=== PATIENT | male | born 1940 | race Hispanic/Latino ===

== ENCOUNTER 2018-07-05 07:11 | Day surgery (SDC) | payer OTHER ==
[2018-07-02 11:42] LABS: EOSINOPHILS % (AUTO) 1.5 % (0.0-8.0); LYMPHOCYTES % (AUTO) 14.7 % (21.0-51.0); MEAN CORPUSCULAR HEMOGLOBIN 29.5 pg (27.0-33.0); MEAN CORPUSCULAR HGB CONC 33.5 g/dL (32.0-36.0); MEAN CORPUSCULAR VOLUME 88.3 fL (79-99); MONOCYTES % (AUTO) 7.6 % (3.0-13.0); NEUTROPHILS % (AUTO) 75.2 % (40.0-77.0); PLATELET COUNT (AUTO) 376 K/uL (130-400); RED BLOOD CELL COUNT(AUTO) 3.96 MIL/uL (4.50-6.20); RED CELL DISTRIBUTION WIDTH 14.8 % (11.0-15.5); WHITE BLOOD COUNT (AUTO) 7.6 K/uL (4.8-10.8)
[2018-07-02 11:44] VITALS: BP 136/62
[2018-07-02 11:57] LABS: CREATININE 1.3 mg/dL (0.5-1.5)
[~2018-07-05] VITALS: Ht 165.1 cm; Wt 81.1 kg
[2018-07-05] VITALS (14 sets, daily range): BP systolic 97–132; BP diastolic 47–65
[~2018-07-05 07:11] MED LIST: ASPI-449 PO; ATOR10TA69 PO; COQ10 PO; INSU100I21 SQ; LOSA1TAB54 PO; MULT-1289 PO; SITA1TAB6 PO; TAMS0.4C32 PO
[2018-07-05] MEDS ORDERED: SODIUM CHLORIDE 0.9% 1000ML 1,000 ML IV ONE (08:06)
[2018-07-05] MEDS ORDERED: DEXAMETHASONE SOD PHOSPHATE 10MG/ML 1ML VIAL ONE (08:17)
[2018-07-05] MEDS ORDERED: MIDAZOLAM HCL 1 MG/ML 2ML VIAL ONE (08:17)
[2018-07-05] MEDS ORDERED: LIDOCAINE PF 2% 5ML ABBOJECT ONE ×2 (08:17→08:19)
[2018-07-05] MEDS ORDERED: PROPOFOL 10 MG/ML 20ML VIAL IV ONE (08:18)
[2018-07-05] MEDS ORDERED: FENTANYL CITRATE PF 50 MCG/1 ML 2ML VIAL ONE (08:18)
[2018-07-05] MEDS ORDERED: GLYCOPYRROLATE 1 MG/5 ML SYRINGE ONE (08:18)
[2018-07-05] MEDS ORDERED: SUCCINYLCHOLINE CHLORIDE 20 MG/ML 10 ML VIAL ONE (08:18)
[2018-07-05] MEDS ORDERED: ONDANSETRON HCL 4 MG/2 ML VIAL ONE (08:18)
[2018-07-05] MEDS ORDERED: NEOSTIGMINE 5MG/5ML SYR IV ONE (08:18)
[2018-07-05] MEDS ORDERED: ROCURONIUM BROMIDE 10MG/1ML 5ML VL ONE (08:19)
[2018-07-05] MEDS ORDERED: CEFAZOLIN SODIUM 1 GM VIAL ONE (10:32)
== END 2018-07-05 12:50 | disposition home or self-care (01) ==
LOC: DAH 07:11
PROVIDERS: ATTEND Surgery
DX: N40.1 Benign prostatic hyperplasia with lower urinary tract symptoms (principal); R31.0 Gross hematuria; Z79.899 Other long term (current) drug therapy; E11.9 Type 2 diabetes mellitus without complications; I10 Essential (primary) hypertension; E78.5 Hyperlipidemia, unspecified; Z98.890 Other specified postprocedural states; Z90.49 Acquired absence of other specified parts of digestive tract; Z80.9 Family history of malignant neoplasm, unspecified; Z82.49 Family history of ischemic heart disease and other diseases of the circulatory system; Z79.84 Long term (current) use of oral hypoglycemic drugs; Z79.4 Long term (current) use of insulin
CPT/HCPCS: 36415; 52001; 80048; 82948 ×2; 85025; 87088; 88108; 93005; A4358; A4510; A4600; J0330; J0690; J1100; J2001 ×2; J2250; J2405; J2704; J3010; J3490 ×2; J7030 ×2; J2710